=== PATIENT | female | born 1960 | race African-American/Black ===

== ENCOUNTER 2018-01-04 09:58 | Emergency (ER) | payer MEDICARE, MEDICAID ==
[~2018-01-04] VITALS: Ht 162.6 cm; Wt 61.2 kg
[2018-01-04 10:43] LABS: Basophils # (auto) 0 uL; Basophils % (auto) 0.8 % (0.0-2.0); Eosinophils # (auto) 0.2 uL; Hemoglobin 13.3 g/dL (12.2-16.2); Lymphocytes # (auto) 1.9 uL; Mean Corpuscular Hemoglobin 30.2 pg (28.0-32.0); Mean Corpuscular Hgb Conc. 31.7 g/dL (32.0-36.0); Mean Corpuscular Volume 95.4 fL (80.0-100.0); Monocytes # (auto) 0.4 uL; Neutrophils # (auto) 1.7 uL; Neutrophils % (auto) 40.2 % (37.0-80.0); Nucleated Red Blood Cells % 0.2 %; Platelet Count (auto) 383 10^3/uL (140-450); Red Blood Cells 4.41 10^6/uL (4.0-5.20); Red Cell Distribution Width 15.6 % (11.8-14.3); White Blood Cell 4.2 10^3/uL (4.4-10.8)
[2018-01-04 10:54] LABS: Urine Bacteria FEW /hpf (None Seen); Urine Blood Negative /uL (Negative); Urine Specific Gravity 1.012 (1.001-1.035); Urine WBC 2 /hpf (0 - 5)
[2018-01-04 11:04] LABS: Alanine Aminotransferase 17 U/L (13-56); Albumin 3.7 g/dL (3.4-5.0); Alkaline Phosphatase 64 U/L (45-117); Anion Gap 7 (5-15); Aspartate Aminotransferase 17 U/L (15-37); BUN/Creatinine Ratio 9.3; Bilirubin, Total 0.4 mg/dL (0.2-1.0); Blood Urea Nitrogen 10 mg/dL (7-18); Calcium 9.2 mg/dL (8.5-10.1); Carbon Dioxide 24 mmol/L (21-32); Chloride 106 mmol/L (98-107); GFR African American 67 mL/min; GFR Non-African American 56 mL/min; Glucose 96 mg/dL (74-106); Magnesium 2.5 mg/dL (1.6-2.6); Potassium 3.9 mmol/L (3.5-5.1); Sodium 137 mmol/L (136-145); Total Protein 9.1 g/dL (6.4-8.2)
[2018-01-04 11:12] LABS: Alcohol, Urine < 3.0 mg/dL (0-5); Amphetamine Screen, Urine NEGATIVE (NEGATIVE); Barbiturate Scree,Urine NEGATIVE (NEGATIVE); Benzodiazephine Screen, Urine NEGATIVE (NEGATIVE); Cannabinoid Screen, Urine POSITIVE (NEGATIVE); Cocaine Screen, Urine NEGATIVE (NEGATIVE); Opiate Scree,Urine NEGATIVE (NEGATIVE); Phencyclidine Screen, Urine NEGATIVE (NEGATIVE)
[2018-01-04] MEDS ORDERED: HYDROcodone-ACET 10/325MG TAB PO ONE ×2 (11:30)
[2018-01-04 13:20] VITALS: BP 136/86
== END 2018-01-04 13:46 | disposition home or self-care (01) ==
LOC: ER 09:58
DX: R07.89 Other chest pain (principal); N39.0 Urinary tract infection, site not specified; R04.0 Epistaxis; E78.5 Hyperlipidemia, unspecified
CPT/HCPCS: 36415; 80053; 80307; 81001; 83735; 84484; 85025; 93005

== ENCOUNTER 2024-06-24 18:51 | Emergency (ER) | payer MEDICAID, MEDICARE ==
[~2024-06-24] VITALS: Ht 165.1 cm; Wt 53.6 kg
[2024-06-24 22:31] VITALS: BP 107/55; PULSE 71; RESP 18; O2SAT 98
[2024-06-24] MEDS ORDERED: IBUP1TAB4 PO (22:42)
[2024-06-24] MEDS ORDERED: DICL1GEL59 EX (22:42)
[2024-06-24 22:55] VITALS: TEMP 98
[2024-06-24] MEDS: IBUPROFEN 400 MG TAB PO ONE (22:55)
== END 2024-06-24 23:16 | disposition home or self-care (01) ==
LOC: ER 18:51
DX: S63.691A Other sprain of left index finger, initial encounter (principal); S63.693A Other sprain of left middle finger, initial encounter; E78.5 Hyperlipidemia, unspecified; Z98.890 Other specified postprocedural states; X58.XXXA Exposure to other specified factors, initial encounter; Y93.89 Activity, other specified; Y92.89 Other specified places as the place of occurrence of the external cause; Y99.8 Other external cause status
CPT/HCPCS: 73130

== ENCOUNTER 2024-08-03 09:11 | Emergency (ER) | payer MEDICARE, MEDICAID ==
[~2024-08-03] VITALS: Ht 165.1 cm; Wt 50.4 kg
[~2024-08-03 09:11] MED LIST: DICL1GEL59 EX; IBUP1TAB4 PO
--- NOTE | 2024-08-03 10:29 | ED.PDOC ---
Musculoskeletal HPI Comments 64F presents to the ER w/ no prior Hx associated to the c/c of a wound check. Pt reports that she had trauma on her left 3rd and 4th digit tips after accidentally slamming a door on them 2 weeks ago. Pt states that she has discoloration and swelling of the 3rd digit and swelling on the 4th digit after the trauma. Per pt, the 3rd digit has worsened through time and started to make the pt have on and off mild hand pain. Pt notes that she did go to before heading to the ER. PMHx of high lipids. SHx of and tonsillectomy. Denies chills, fever, N/V/D, SOB, CP or other associated symptom's, modifiers, or recent injuries or sick contact at this time. Chief Complaint: Wound Check Time Seen by MD: 10:20 Primary Care Provider: ARNALDO Blue Notes: Nurses Notes, Medications, Allergies Allergies: Coded Allergies: NO KNOWN ALLERGIES (Unverified , 01/23/16) Home Meds Active Scripts Diclofenac Sodium (Topical) (Voltaren Arthritis Pain) 1 % Gel, 1 % EX QID, #1 GEL Prov:GARY JOSEPH [facility] 06/24/24 Ibuprofen Micronized (Ibuprofen) 400 Mg Tab, 400 MG PO Q4HPRN PRN, #20 TAB Prov:GARY JOSEPH 06/24/24 Information Source: Patient Mode of Arrival: Ambulatory Location: Left Extremity Location: Finger 3, Finger 4 Timing: Weeks Prehospital treatment: None Severity: Moderate Able to Move Extremity: Yes Bear Weight: Limited Pain: Moderate Hand Dominance: Right Mechanism: Blunt Trauma, Spontaneous Circumstances: Door Closure Onset of Symptoms: After Trauma Symptoms: Swelling, Pain DVT Risk Factors: NONE Last Tetanus: Unknown Associated signs and symptoms: Swelling, Hand pain Past Medical History PAST MEDICAL HISTORY: High Lipids Surgical History: , Tonsillectomy [employer] CHAIR History: No Pertinent [employer] CHAIR History Family History Family History: Reviewed,noncontributory to illness, Unknown Social History Smoker: Non-Smoker Alcohol: Denies ETOH Use Drugs: Denies Drug Use Lives In: Home Constitutional: denies: chills, diaphoresis, fatigue, fever, malaise, sweats, weakness, others EENTM: denies: blurred vision, double vision, ear bleeding, ear discharge, ear drainage, ear pain, ear ringing, eye pain, eye redness, hearing loss, mouth pain, mouth swelling, nasal discharge, nose bleeding, nose congestion, nose pain, photophobia, tearing, throat pain, throat swelling, voice changes, others Respiratory: denies: cough, hemoptysis, orthopnea, SOB at rest, shortness of breath, SOB with excertion, stridor, wheezing, others Cardiovascular: denies: chest pain, dizzy spells, diaphoresis, Dyspnea on exertion, edema, irregular heart beat, left arm pain, lightheadedness, palpitations, PND, syncope, others Gastrointestinal: denies: abdomen distended, abdominal pain, blood streaked bowels, constipated, diarrhea, dysphagia, difficulty swallowing, hematemesis, melena, nausea, poor appetite, poor fluid intake, rectal bleeding, rectal pain, vomiting, others Genitourinary: denies: abnormal vagina bleeding, burning, dyspareunia, dysuria, flank pain, frequency, hematuria, incontinence, pain, , vagina discharge, urgency, others Neurological: denies: dizziness, fainting, headache, left sided numbness, left sided weakness, numbness, paresthesia, pre-existing deficit, right sided numbness, right sided weakness, seizure, speech problems, tingling, tremors, weakness, others Musculoskeletal: denies: back pain, gout, joint pain, joint swelling, muscle pain, muscle stiffness, neck pain, others Integumetry: reports: change in color; denies: bruises, change in hair/nails, dryness, laceration, lesions, lumps, rash, wounds, others Allergic/Immunocompromised: denies: Difficulty Healing, Frequent Infections, Hives, Itching, others Hematologic/Lymphatic: denies: anemia, blood clots, easy bleeding, easy bruising, swollen glands, others Endocrine: denies: excessive hunger, excessive sweating, excessive thirst, excessive urination, flushing, intolerance to cold, intolerance to heat, unexplained weight gain, unexplained weight loss, others Psychiatric: denies: anxiety, bipolar disorder, depression, hopeless, panic disorder, schizophrenia, sleepless, suicidal, others All Other Systems: Reviewed and Negative Physical Exam General Appearance: Mild Distress, Normal HEENT: Normal ENT Inspection, PERRL/EOMI, Pharynx Normal, TMs Normal Neck: Full Range of Motion, Non-Tender, Normal, Normal Inspection Respiratory: Chest Non-Tender, Lungs Clear, No Accessory Muscle Use, No Respiratory Distress, Normal Breath Sounds Cardiovascular: No Edema, No JVD, No Murmur, No Gallop, Normal Peripheral Pulses, Regular Rate/Rhythm Breast Exam: Deferred Gastrointestinal: No Organomegaly, Non Tender, No Pulsatile Mass, Normal Bowel Sounds, Soft Genitalia: Deferred Pelvic: Deferred Rectal: Deferred Extremities: Decreased range of motion, Inflammation, No calf tenderness, Normal capillary refill, Non-tender, No pedal edema, Swelling, Tender, Other (Left hand 3rd and 4th digit mostly the 3rd tip swollen and discolored nail intact pain mostly distal) Musculoskeletal : Location: Left Extremity Location: Finger 3, Finger 4 Apperance: Normal, Swelling, Limited ROM, Tenderness: Moderate, Other (Skin discolored painful no deformity) Neurologic: Alert, care assistant II-XII nml as Tested, No Motor Deficits, Normal Affect, Normal Mood, No Sensory Deficits Cerebellar Function: Normal Reflexes: Normal Skin: Dry, Normal Color, Warm Peripheral Pulses: 1+ carotid (R), 1+ carotid (L) Lymphatic: No Adenopathy Was a procedure done? Was a procedure done?: No Differential Diagnosis EXT Differential Diagnosis: Cellulitis, Fracture, Laceration, Contusion, Septic, Other (Skin disruption distal phalanx with possible secondary infection) X-Ray, Labs, Meds, VS Vital Signs Date Time Temp Pulse Resp B/P (MAP) Pulse Ox O2 Delivery O2 Flow Rate FiO2 08/03/24 10:25 79 16 96 Room Air 08/03/24 10:25 98.7 79 17 100/66 (77) 96 98.7 08/03/24 09:31 98.1 84 16 135/66 (89) 92 Current Medications Medications (Trade) Dose Ordered Sig/Jaspreet Route Start Time Stop Time Status Last Admin Acetaminophen/ Hydrocodone Bitart ([place] 5/325MG Tab) 1 tab ONCE ONCE PO 08/03/24 10:30 08/03/24 10:31 DC 08/03/24 10:32 Diphtheria/ Tetanus/Acell Pertussis (Boostrix T-Dap) 0.5 ml ONCE ONCE IM 08/03/24 10:30 08/03/24 10:31 DC 08/03/24 10:38 X-Ray, Labs, Meds, VS Comment Course in the emergency department patient presented for follow up injury she has near left hand on 06/24/2024 at the urgent care x-ray was taken it was found to be normal Today distal phalanx 2nd 3rd and four hot swollen tender in the 3rd finger is also infected with discoloration of the tip of the finger X-ray today shows a fracture of the tuft of the 2nd finger distal phalanx and on evaluation the previous x-ray there is actually no change between the two of them Patient will have the hand splint involving the three distal fingers She will be discharged with pain medication antibiotics Time of 1ST Reevaluation: 10:50 Reevaluation 1ST: Unchanged Time of 2ND Reevaluation: 12:05 Reevaluation 2ND: Unchanged Consultation: PCP Patient Education/Counseling: Diagnosis, Treatment, Prognosis, Need For Follow Up Family Education/Counseling: Diagnosis, Treatment, Prognosis, Need For Follow Up, No Family Present Departure 1 Departure Time of Disposition: 12:09 Impression: Primary Impression: Crushing injury of left hand and finger Additional Impressions: Fracture of distal phalanx of finger of left hand Cellulitis of finger of right hand Disposition: 01 HOME / SELF CARE / HOMELESS Condition: Fair Additional Instructions: Keep hand elevated and follow up with your PCP e-Prescriptions Naproxen (NAPROSYN TABLET) 500 Mg Tb 1 TAB PO BID for 5 Days, #10 TAB 1 Refill Prov: SALO MCCALLUM MD 08/03/24 Cefdinir (Cefdinir) 300 Mg Cap 2 CAP PO DAILY for 10 Days, #20 CAP Prov: SALO MCCALLUM MD 08/03/24 Hydrocodone-Acetaminophen (Hydrocodone Bitartrate/AC 5-325 mg) 1 Tab Tab 1 TAB PO BID for 5 Days, #10 TAB Prov: SALO MCCALLUM MD 08/03/24 Discharged With: Self Critical Care Note Critical Care Time?: No Stability Stability form required: No Heart Score Heart Score: Heart Score Response (Comments) Value History N/A 0 EKG N/A 0 Age 45-64 1 Risk Factors No known risk factors 0 Troponin N/A 0 Total 1 I personally scribed for SALO MCCALLUM MD ([email or web address]) on 08/03/24 at 10:29. Electronically submitted by Julio Naylor ([email or web address]). SALO MCCALLUM MD Aug 03, 2024 10:29
[2024-08-03] MEDS: HYDROcodone-ACET 5/325MG TAB PO ONE (10:32)
[2024-08-03] MEDS: TETANUS-DIPTH-ACEL PERTUSSIS 0.5ML SYR Tdap IM ONE (10:38)
--- NOTE | 2024-08-03 11:48 | DVH ---
XY L HAND 3V XRAY, INDICATION: 64 old Female CRUSH INJURY 3AND 4 FINGERS TECHNICAL DATA: Frontal, oblique and lateral views were obtained of the left hand. COMPARISON: XY L HAND 3V XRAY on DOS: 06/24/24 FINDINGS: Small fracture at the tuft of the 2nd distal phalanx. Joint spaces are maintained. Alignment is anato anushka. Soft tissues are within normal limits. IMPRESSION: Small fracture at the tuft of the 2nd distal phalanx.
[2024-08-03] MEDS ORDERED: NAP500T PO (12:13)
[2024-08-03] MEDS ORDERED: HYDR-4902 PO (12:13)
[2024-08-03] MEDS ORDERED: CEFD300C2 PO (12:13)
[2024-08-03 12:17] VITALS: BP 127/78; PULSE 78; RESP 17; TEMP 98.3; O2SAT 96
== END 2024-08-03 12:38 | disposition home or self-care (01) ==
LOC: ER 09:11
DX: S62.631A Displaced fracture of distal phalanx of left index finger, initial encounter for closed fracture (principal); L03.011 Cellulitis of right finger; E78.5 Hyperlipidemia, unspecified; Z90.89 Acquired absence of other organs; Z79.899 Other long term (current) drug therapy; Z98.890 Other specified postprocedural states; W23.0XXA Caught, crushed, jammed, or pinched between moving objects, initial encounter; Y93.89 Activity, other specified; Y92.89 Other specified places as the place of occurrence of the external cause; Y99.8 Other external cause status
CPT/HCPCS: 29130; 73130; 90715; 96372

== ENCOUNTER 2024-08-11 08:16 | Inpatient (IN) | payer MEDICARE, MEDICAID ==
[~2024-08-11] VITALS: Ht 162.6 cm; Wt 55.4 kg
[~2024-08-11 08:16] MED LIST changes: +CEFD300C2 PO; +HYDR-4902 PO; +NAP500T PO
--- NOTE | 2024-08-11 08:43 | ED.PDOC ---
Musculoskeletal HPI Comments 64Y F with PMHx HLD, , and tonsillectomy presents to ED for chief complaint wound check. Pt states she crushed her fingers on door in mid June 2024. Pt presents to ED with lt middle finger containing dry, black gangrene on distal end. Pt was seen at [facility] ER on 06/24/2024 and 08/03/2024, notes reviewed. Pt denies any h/o diabetes. Pt denies pain. Chief Complaint: Wound Check Time Seen by MD: 08:22 Primary Care Provider: ARNALDO Blue Notes: Medications, Allergies Allergies: Coded Allergies: NO KNOWN ALLERGIES (Unverified , 01/23/16) Home Meds Active Scripts Naproxen (NAPROSYN TABLET) 500 Mg Tb, 1 TAB PO BID for 5 Days, #10 TAB 1 Refill Prov:SALO MCCALLUM MD 08/03/24 Cefdinir (Cefdinir) 300 Mg Cap, 2 CAP PO DAILY for 10 Days, #20 CAP Prov:SAOL MCCALLUM MD 08/03/24 Hydrocodone-Acetaminophen (Hydrocodone Bitartrate/AC 5-325 mg) 1 Tab Tab, 1 TAB PO BID for 5 Days, #10 TAB Prov:SALO MCCALLUM MD 08/03/24 Diclofenac Sodium (Topical) (Voltaren Arthritis Pain) 1 % Gel, 1 % EX QID, #1 GEL Prov:GARY JOSEPH 06/24/24 Ibuprofen Micronized (Ibuprofen) 400 Mg Tab, 400 MG PO Q4HPRN PRN, #20 TAB Prov:GARY JOSEPH 06/24/24 Information Source: Patient Mode of Arrival: Ambulatory Location: Left Extremity Location: Finger 3 Timing: Months Severity: Severe Able to Move Extremity: No Bear Weight: No Pain: None Mechanism: Crush Circumstances: Accident Onset of Symptoms: After Trauma DVT Risk Factors: NONE Last Tetanus: Unknown Associated signs and symptoms: None Past Medical History PAST MEDICAL HISTORY: High Lipids Surgical History: , Tonsillectomy PUBLIC HEALTH POLICY ANALYST History: No Pertinent PUBLIC HEALTH POLICY ANALYST History Family History Family History: Reviewed,noncontributory to illness, Unknown Social History Smoker: Non-Smoker Alcohol: Denies ETOH Use Drugs: Denies Drug Use Lives In: Home Constitutional: denies: chills, diaphoresis, fatigue, fever, malaise, sweats, weakness, others EENTM: denies: blurred vision, double vision, ear bleeding, ear discharge, ear drainage, ear pain, ear ringing, eye pain, eye redness, hearing loss, mouth pain, mouth swelling, nasal discharge, nose bleeding, nose congestion, nose pain, photophobia, tearing, throat pain, throat swelling, voice changes, others Respiratory: denies: cough, hemoptysis, orthopnea, SOB at rest, shortness of breath, SOB with excertion, stridor, wheezing, others Cardiovascular: denies: chest pain, dizzy spells, diaphoresis, Dyspnea on exertion, edema, irregular heart beat, left arm pain, lightheadedness, palpitations, PND, syncope, others Gastrointestinal: denies: abdomen distended, abdominal pain, blood streaked bowels, constipated, diarrhea, dysphagia, difficulty swallowing, hematemesis, melena, nausea, poor appetite, poor fluid intake, rectal bleeding, rectal pain, vomiting, others Genitourinary: denies: abnormal vagina bleeding, burning, dyspareunia, dysuria, flank pain, frequency, hematuria, incontinence, pain, , vagina discharge, urgency, others Neurological: denies: dizziness, fainting, headache, left sided numbness, left sided weakness, numbness, paresthesia, pre-existing deficit, right sided numbness, right sided weakness, seizure, speech problems, tingling, tremors, weakness, others Musculoskeletal: denies: back pain, gout, joint pain, joint swelling, muscle pain, muscle stiffness, neck pain, others Integumetry: reports: wounds (lt middle finger); denies: bruises, change in color, change in hair/nails, dryness, laceration, lesions, lumps, rash, others Allergic/Immunocompromised: denies: Difficulty Healing, Frequent Infections, Hives, Itching, others Hematologic/Lymphatic: denies: anemia, blood clots, easy bleeding, easy bruising, swollen glands, others Endocrine: denies: excessive hunger, excessive sweating, excessive thirst, excessive urination, flushing, intolerance to cold, intolerance to heat, unexplained weight gain, unexplained weight loss, others Psychiatric: denies: anxiety, bipolar disorder, depression, hopeless, panic disorder, schizophrenia, sleepless, suicidal, others All Other Systems: Reviewed and Negative Physical Exam General Appearance: No Apparent Distress, Normal HEENT: Normal ENT Inspection, Pharynx Normal, TMs Normal Neck: Full Range of Motion, Non-Tender, Normal, Normal Inspection Respiratory: Chest Non-Tender, Lungs Clear, No Accessory Muscle Use, No Respiratory Distress, Normal Breath Sounds Cardiovascular: No Edema, No JVD, No Murmur, No Gallop, Normal Peripheral Pulses, Regular Rate/Rhythm Breast Exam: Deferred Gastrointestinal: No Organomegaly, Non Tender, No Pulsatile Mass, Normal Bowel Sounds, Soft Genitalia: Deferred Pelvic: Deferred Rectal: Deferred Extremities: No calf tenderness, Normal range of motion, Non-tender, No pedal edema Musculoskeletal : Location: Left Extremity Location: Finger 3 Apperance: Other (distal dry gangrene) Neurologic: Alert, 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 Was a procedure done?: Yes Sedation Sedation?: No Other Procedure Procedure finger splint. place properly, good neurovascular function EKG EKG : Pulse Rate (adult): 59 Cardiac Rhythm: SB ST: Nonsp Differential Diagnosis EXT Differential Diagnosis: Cellulitis, Deep Vein Thrombosis, Fracture, Sprain, Dislocation, DJD, Contusion, Strain, Neurovascular injury, Arthritis, Bursitis, Other (gangrene. vascular disorders, raynauds disease, thromboembolic disorders) X-Ray, Labs, Meds, VS Vital Signs Date Time Temp Pulse Resp B/P (MAP) Pulse Ox O2 Delivery O2 Flow Rate FiO2 08/11/24 10:23 59 08/11/24 10:18 59 08/11/24 08:49 99.0 100 16 126/74 (91) 96 99.0 08/11/24 08:49 72 16 96 Room Air* 0 21 08/11/24 08:23 99.0 100 16 126/74 (91) 96 Lab Test 08/11/24 08:44 Range/Units White Blood Count 6.1 4.4-10.8 10^3/uL Red Blood Count 4.47 4.0-5.20 10^6/uL Hemoglobin 14.4 12.2-16.2 g/dL Hematocrit 43.9 36.0-46.0 % Mean Corpuscular Volume 98.1 80.0-100.0 fL Mean Corpuscular Hemoglobin 32.2 H 28.0-32.0 pg Mean Corpuscular Hemoglobin Concent 32.8 32.0-36.0 g/dL Red Cell Distribution Width 14.9 H 11.8-14.3 % Platelet Count 426 140-450 10^3/uL Mean Platelet Volume 7.3 6.9-10.8 fL Neutrophils (%) (Auto) 42.4 37.0-80.0 % Lymphocytes (%) (Auto) 43.2 10.0-50.0 % Monocytes (%) (Auto) 9.2 0.0-12.0 % Eosinophils (%) (Auto) 3.9 0.0-7.0 % Basophils (%) (Auto) 1.3 0.0-2.0 % Neutrophils # (Auto) 2.6 1.6-8.6 10 ^3/uL Lymphocytes # (Auto) 2.7 0.4-5.4 10 ^3/uL Monocytes # (Auto) 0.6 0-1.3 10 ^3/uL Eosinophils # (Auto) 0.2 0-0.8 10 ^3/uL Basophils # (Auto) 0.1 0-0.2 10 ^3/uL Nucleated Red Blood Cells 0.2 % Sodium Level 140 136-145 mmol/L Potassium Level 4.1 3.5-5.1 mmol/L Chloride Level 110 H 98-107 mmol/L Carbon Dioxide Level 25 20-31 mmol/L Anion Gap 5 5-15 Blood Urea Nitrogen 6 L 9-23 mg/dL Creatinine 0.97 0.550-1.02 mg/dL Glomerular Filtration Rate Calc 66 >90 mL/min BUN/Creatinine Ratio 6.2 L 10.0-20.0 Serum Glucose 100 74-106 mg/dL Calcium Level 9.9 8.7-10.4 mg/dL Current Medications Medications (Trade) Dose Ordered Sig/Jaspreet Route Start Time Stop Time Status Last Admin Acetaminophen/ Hydrocodone Bitart ([place] 5/325MG Tab) 1 tab ONCE ONCE PO 08/11/24 09:00 08/11/24 09:01 DC 08/11/24 09:00 [facility] [id number] [place] [id number] Ph: [phone] DIAGNOSTIC IMAGING Diagnostic Imaging Report : [id number] Signed PATIENT: GERRY GALLARDO ANNACCT: [id number] UNIT: [id number] : 1960 LOC: ER ROOM / BED: / AGE / SEX: 64 / F ADM STATUS: REG ER SERVICE 8 ORDERING PHYSICIAN: MCKENZIE CONRAD MD PROCEDURE(s): LFIN3 - L 3RD FINGER XRAY REASON: injury ORDER NUMBER(s): [id number], ACCESSION NUMBER(s): [id number] INDICATION: 64 old Female CRUSH INJURY 3AND 4 FINGERS TECHNICAL DATA: Frontal, oblique and lateral views were obtained of the left hand. COMPARISON: 08/03/24 FINDINGS: Fracture at the tuft of the 2nd distal phalanx, stable. Joint spaces are maintained. Alignment is anatomic. Soft tissues are within normal limits. IMPRESSION: Stable small fracture at the tuft of the 2nd distal phalanx. ATED BY: SHAVONNE CANO MD DICTATED DATE/TIME: 08/11/24930 SIGNED BY: SHAVONNE CANO MD SIGNED DATE/TIME: 08/11/24930 CC: Time of 1ST Reevaluation: 08:52 Reevaluation 1ST: Unchanged Time of 2ND Reevaluation: 10:54 Reevaluation 2ND: Unchanged Patient Education/Counseling: Diagnosis, Treatment, Prognosis, Need For Follow Up Family Education/Counseling: No Family Present Additional Information pt smashed her left middle finger and now has a dried gangrenous distal phalanx. she also fractured the left 2nd tuft. however, this suggests she also has vascular disorder. for the finger, she will eventually need it amputated, but she will need to be worked up for arterial insufficiency. i will have her admitted Departure 1 Departure Time of Disposition: 10:58 Impression: Primary Impression: Dry gangrene Additional Impressions: Vascular abnormality Closed fracture of tuft of distal phalanx of finger Disposition: ADMITTED INPATIENT Admit to: Med Surg Condition: Stable Discharged With: Self Critical Care Note Critical Care Time?: No Critical care comment: due to real concerns for pt's condition deteriorating, the patient's care required my highest level of attention and prepareness to intervene. i assessed this patient, formulated a plan of care, communicated with medical personnel,reveiwed data and results,andconversed with child welfare consultant, reassessed the patient's condition and response to treatments. total time includde at [facility] 50% face-face interactions and does not include any procedures Stability Stability form required: No I personally scribed for MCKENZIE CONRAD MD ([email or web address]) on 08/11/24 at 08:43. Electronically submitted by Penny Woods ([employer]). I personally scribed for MCKENZIE CONRAD MD ([email or web address]) on 08/11/24 at 09:35. Electronically submitted by Penny Woods ([employer]). I personally scribed for MCKENZIE CONRAD MD ([facility] on 08/11/24 at 10:23. Electronically submitted by Penny Woods ([employer]). MCKENZIE CONRAD MD Aug 11, 2024 08:43
[2024-08-11 08:49] VITALS: PULSE 72; RESP 16; O2SAT 96
[2024-08-11] MEDS: HYDROcodone-ACET 5/325MG TAB PO ONE (09:00)
[2024-08-11 09:04] LABS: Basophils # (auto) 0.1 10 ^3/uL (0-0.2); Basophils % (auto) 1.3 % (0.0-2.0); Eosinophils # (auto) 0.2 10 ^3/uL (0-0.8); Eosinophils % (auto) 3.9 % (0.0-7.0); Hematocrit 43.9 % (36.0-46.0); Hemoglobin 14.4 g/dL (12.2-16.2); Lymphocytes # (auto) 2.7 10 ^3/uL (0.4-5.4); Lymphocytes % (auto) 43.2 % (10.0-50.0); Mean Corpuscular Hemoglobin 32.2 pg (28.0-32.0); Mean Corpuscular Hgb Conc. 32.8 g/dL (32.0-36.0); Mean Corpuscular Volume 98.1 fL (80.0-100.0); Monocytes # (auto) 0.6 10 ^3/uL (0-1.3); Monocytes % (auto) 9.2 % (0.0-12.0); Neutrophils # (auto) 2.6 10 ^3/uL (1.6-8.6); Neutrophils % (auto) 42.4 % (37.0-80.0); Nucleated Red Blood Cells % 0.2 %; Platelet Count (auto) 426 10^3/uL (140-450); Red Blood Cells 4.47 10^6/uL (4.0-5.20); Red Cell Distribution Width 14.9 % (11.8-14.3); White Blood Cell 6.1 10^3/uL (4.4-10.8)
--- NOTE | 2024-08-11 09:34 | DVH ---
INDICATION: 64 old Female CRUSH INJURY 3AND 4 FINGERS TECHNICAL DATA: Frontal, oblique and lateral views were obtained of the left hand. COMPARISON: 08/03/24 FINDINGS: Fracture at the tuft of the 2nd distal phalanx, stable. Joint spaces are maintained. Alignment is jeanette tomic. Soft tissues are within normal limits. IMPRESSION: Stable small fracture at the tuft of the 2nd distal phalanx.
[2024-08-11 09:39] LABS: Chloride 110 mmol/L (98-107); Potassium 4.1 mmol/L (3.5-5.1); Sodium 140 mmol/L (136-145)
[2024-08-11 09:40] LABS: Anion Gap 5 (5-15); Carbon Dioxide 25 mmol/L (20-31)
[2024-08-11 09:41] LABS: Calcium 9.9 mg/dL (8.7-10.4)
[2024-08-11 09:45] LABS: BUN/Creatinine Ratio 6.2 (10.0-20.0); Blood Urea Nitrogen 6 mg/dL (9-23); Glucose 100 mg/dL (74-106)
[2024-08-11] MEDS ORDERED: ACETAMINOPHEN 325 MG TAB PO PRN (13:45)
--- NOTE | 2024-08-11 13:53 | DVHHP2 ---
History of Present Illness Reason for Visit: Wound check History of Present Illness This 64-year-old female presents in the ED with a chief complaint of wound check. The patient reports that she was advised by her PCP to go back to the ER due to left middle finger gangrene. The patient states she crushed her fingers on door in mid June, went to the ER 2 times and was sent home to follow-up with PCP. The patient denies fever, chills, pain, or other acute symptoms. Past Medical History Hyperlipidemia Past Surgical History Denies Family History Reviewed, non-contributory to the management of this case. Past Social History Tobacco and marijuana use Denies EtOH abuse Review of Systems Constitutional: No: Fever, Chills, Sweats, Weakness, Malaise, Other Eyes: No: Pain, Vision change, Conjunctivae inflammation, Eyelid inflammation, Other, Redness ENT: No: Ear pain, Ear discharge, Nose pain, Nose discharge, Nose congestion, Mouth pain, Mouth swelling, Throat pain, Throat swelling, Other Respiratory: No: Cough, Dry, Shortness of breath, SOB with excertion, Wheezing, Hemoptysis, Pleuritic Pain, Sputum, Wheezing, Other Cardiovascular: No: Chest Pain, Palpitations, Orthopnea, Paroxysmal Noc. Dyspnea, Edema, Lt Headedness, Other Gastrointestinal: No: Nausea, Vomiting, Abdominal Pain, Diarrhea, Constipation, Melena, Hematochezia, Other Genitourinary: No Dysuria, No Frequency, No Incontinence, No Hematuria, No Retention, No Other Musculoskeletal: other (Wound mid finger, gangrene); No: neck pain, shoulder pain, arm pain, back pain, hand pain, leg pain, foot pain Skin: No: Rash, Lesions, Jaundice, Bruising, Other Neurological: No: Weakness, Numbness, Incoordination, Change in speech, Confusion, Seizures, Other Allergies: Coded Allergies: NO KNOWN ALLERGIES (Unverified , 01/23/16) Exam Vital Signs Vital Signs Date Time Temp Pulse Resp B/P (MAP) Pulse Ox O2 Delivery O2 Flow Rate FiO2 08/11/24 12:00 58 08/11/24 10:41 11 94/30 (51) 97 08/11/24 08:49 99.0 99.0 08/11/24 08:49 Room Air* 0 21 General Appearance: Alert, Oriented X3, Cooperative, No acute distress HEENT: Atraumatic, PERRLA, EOMI, Mucous membr. moist/pink Respiratory: Clear to auscultation, Normal air movement Cardiovascular: Regular rate, Normal S1, Normal S2 Abdominal: Normal bowel sounds, Soft, No tenderness, No hepatospenomegaly Extremities: Other (Left middle finger gangrene, 2nd distal phalanx fracture) Neuro: Normal gait, Normal speech, Strength at 5/5 X4 ext, Normal tone Psych/Mental Status: Mental status NL Labs/Xrays Labs Test 08/11/24 08:44 Range/Units White Blood Count 6.1 4.4-10.8 10^3/uL Red Blood Count 4.47 4.0-5.20 10^6/uL Hemoglobin 14.4 12.2-16.2 g/dL Hematocrit 43.9 36.0-46.0 % Mean Corpuscular Volume 98.1 80.0-100.0 fL Mean Corpuscular Hemoglobin 32.2 H 28.0-32.0 pg Mean Corpuscular Hemoglobin Concent 32.8 32.0-36.0 g/dL Red Cell Distribution Width 14.9 H 11.8-14.3 % Platelet Count 426 140-450 10^3/uL Mean Platelet Volume 7.3 6.9-10.8 fL Neutrophils (%) (Auto) 42.4 37.0-80.0 % Lymphocytes (%) (Auto) 43.2 10.0-50.0 % Monocytes (%) (Auto) 9.2 0.0-12.0 % Eosinophils (%) (Auto) 3.9 0.0-7.0 % Basophils (%) (Auto) 1.3 0.0-2.0 % Neutrophils # (Auto) 2.6 1.6-8.6 10 ^3/uL Lymphocytes # (Auto) 2.7 0.4-5.4 10 ^3/uL Monocytes # (Auto) 0.6 0-1.3 10 ^3/uL Eosinophils # (Auto) 0.2 0-0.8 10 ^3/uL Basophils # (Auto) 0.1 0-0.2 10 ^3/uL Nucleated Red Blood Cells 0.2 % Sodium Level 140 136-145 mmol/L Potassium Level 4.1 3.5-5.1 mmol/L Chloride Level 110 H 98-107 mmol/L Carbon Dioxide Level 25 20-31 mmol/L Anion Gap 5 5-15 Blood Urea Nitrogen 6 L 9-23 mg/dL Creatinine 0.97 0.550-1.02 mg/dL Glomerular Filtration Rate Calc 66 >90 mL/min BUN/Creatinine Ratio 6.2 L 10.0-20.0 Serum Glucose 100 74-106 mg/dL Calcium Level 9.9 8.7-10.4 mg/dL PROCEDURE(s): LFIN3 - L 3RD FINGER XRAY REASON: injury ORDER NUMBER(s): [id number], ACCESSION NUMBER(s): [id number] INDICATION: 64 old Female CRUSH INJURY 3AND 4 FINGERS TECHNICAL DATA: Frontal, oblique and lateral views were obtained of the left hand. COMPARISON: 08/03/24 FINDINGS: Fracture at the tuft of the 2nd distal phalanx, stable. Joint spaces are maintained. Alignment is anatomic. Soft tissues are within normal limits. IMPRESSION: Stable small fracture at the tuft of the 2nd distal phalanx. Assessment/Plan Assessment/Plan # left middle finger necrosis, gangrene # left the 2nd distal phalanx fracture s/p injury # rule out arterial insufficiency, left upper extremity Admit to medical unit Arterial Doppler Pain control Vascular consult # hx hyperlipidemia Check lipid panel # tobacco and marijuana use Counseled on cessation Nicotine patch DVT prophylaxis Medical plan discussed with patient and daughter at the bedside Plan discussed with: Patient, Daughter My Orders Orders - JOSE SHORT LOGISTICS TECH Procedure Category Date Status Time Admit ADMIT 08/11/24 Verified 13:35 Code Status CODE 08/11/24 Verified 13:35 Hydrocodone-Acet PHA 08/11/24 Verified 5/325mg Tab ([place] 13:45 Ondansetron Hcl PHA 08/11/24 Verified (Zofran) 13:45 Complete Blood Count LAB 08/12/24 Verified 04:00 Comprehensive LAB 08/12/24 Verified Metabolic Panel 04:00 Cardiac DIET 08/11/24 Verified Diet-2gna,Lofat,Lochol Dinner Condition: Fair CATHERINE 08/11/24 Verified 13:35 Enoxaparin Sodium PHA 08/12/24 Verified (Lovenox) 10:00 Acetaminophen Tablet PHA 08/11/24 Verified (Tylenol Tablet) 13:45 Morphine Sulfate PHA 08/11/24 Verified Injection 13:45 Consult CONS 08/11/24 Verified Vascular/Endovascular 13:35 Left Upper Ext US 08/11/24 Verified 13:35 Lipid Panel LAB 08/11/24 Verified 13:35 Date of Service: Aug 11, 2024 Billing Provider: JOSE SHORT Common Visit Codes: [id number] INP/OBS CARE (HIGH) JOSE SHORT Aug 11, 2024 13:53
[2024-08-11 14:10] LABS: Triglycerides 99 mg/dL (< 150)
[2024-08-11 14:11] LABS: LDL Cholesterol 169 mg/dL (< 100)
[2024-08-11 14:12] LABS: Cholesterol 236 mg/dL (< 200); HDL Cholesterol 52 mg/dL (40-59)
[2024-08-11] MEDS: ONDANSETRON HCL 4 MG/2 ML VIAL IV ONE (14:16)
[2024-08-11] MEDS: MORPHINE SULFATE INJ 2 MG/ml SYRG IV ONE (14:17)
[2024-08-11] MEDS: NICOTINE 7MG/24HR TOPICAL PATCH TD ONE (15:22)
--- NOTE | 2024-08-11 15:53 | DVH ---
BILATERAL Lower Extremity Arterial Duplex Date: 08/11/2024 02:42 PM Clinical History: NECROTIC FINGER Comparison: None Technique: Duplex Doppler evaluation including color Doppler and spectral/pulsed waveform analysis of the lower extremity arteries was performed. Finding: LEFT UPPER EXTREMITY: Peak systolic velocities are as follows: LEFT SUBCLAVIAN ARTERY: 120 CENTIMETERS/SECOND . MONOPHASIC WAVEFORM Left axillary artery. 91 centimeters/second triphasic waveform Left brachial artery: 143 centimeters/second triphasic waveform Left radial artery: 45 centimeters/second monophasic waveform Left ulnar artery 35.3 centimeters/second monophasic waveform IMPRESSION: 1. There is no evidence arterial occlusion in the left upper extremity. 2. Monophasic waveform in the left radial and ulnar artery.
[2024-08-11] MEDS: ONDANSETRON HCL 4 MG/2 ML VIAL IV PRN (18:43)
[2024-08-11] MEDS: MORPHINE SULFATE INJ 2 MG/ml SYRG IV PRN (18:44)
[2024-08-11 20:32] VITALS: BP 100/30; PULSE 68; RESP 18; TEMP 98.1; O2SAT 97
[2024-08-11] MEDS: HYDROcodone-ACET 5/325MG TAB PO PRN (20:49)
[2024-08-11 21:00] VITALS: BP 100/30; PULSE 68; RESP 18; TEMP 98.1; O2SAT 97
[2024-08-12] VITALS (7 sets, daily range): BP systolic 96–121; BP diastolic 40–58; PULSE 55–81; RESP 16–18; TEMP 98.2–98.4; O2SAT 96–98
[2024-08-12] MEDS: MELATONIN 5 MG TAB PO ONE (01:02)
[2024-08-12 08:25] LABS: Alanine Aminotransferase 11 U/L (7-40); Albumin 3.9 g/dL (3.2-4.8); Alkaline Phosphatase 56 U/L (46-116); Anion Gap 3 (5-15); Aspartate Aminotransferase 15 U/L (13-40); BUN/Creatinine Ratio 5.9 (10.0-20.0); Blood Urea Nitrogen 6 mg/dL (9-23); Calcium 9.4 mg/dL (8.7-10.4); Carbon Dioxide 25 mmol/L (20-31); Chloride 112 mmol/L (98-107); Potassium 4.6 mmol/L (3.5-5.1); Sodium 140 mmol/L (136-145)
[2024-08-12 08:26] LABS: Bilirubin, Total 0.5 mg/dL (0.2-1.0); Total Protein 6.5 g/dL (5.7-8.2)
[2024-08-12] MEDS: ENOXAPARIN SOD 40 MG/0.4 ML SYRINGE SC SCH (08:31)
[2024-08-12] MEDS: NICOTINE 7MG/24HR TOPICAL PATCH TD SCH (08:31)
[2024-08-12 08:33] LABS: Basophils # (auto) 0.1 10 ^3/uL (0-0.2); Basophils % (auto) 1.2 % (0.0-2.0); Eosinophils # (auto) 0.3 10 ^3/uL (0-0.8); Eosinophils % (auto) 4.4 % (0.0-7.0); Glucose 88 mg/dL (74-106); Hematocrit 42.6 % (36.0-46.0); Hemoglobin 13.6 g/dL (12.2-16.2); Lymphocytes # (auto) 3.2 10 ^3/uL (0.4-5.4); Lymphocytes % (auto) 45.4 % (10.0-50.0); Mean Corpuscular Hemoglobin 31.9 pg (28.0-32.0); Mean Corpuscular Volume 99.7 fL (80.0-100.0); Monocytes # (auto) 0.6 10 ^3/uL (0-1.3); Monocytes % (auto) 8.6 % (0.0-12.0); Neutrophils # (auto) 2.8 10 ^3/uL (1.6-8.6); Neutrophils % (auto) 40.4 % (37.0-80.0); Nucleated Red Blood Cells % 0.1 %; Platelet Count (auto) 289 10^3/uL (140-450); Red Blood Cells 4.28 10^6/uL (4.0-5.20); Red Cell Distribution Width 15.6 % (11.8-14.3); White Blood Cell 7.1 10^3/uL (4.4-10.8)
[2024-08-12 11:13] LABS: Hepatitis B Surface Antigen Negative (Negative)
[2024-08-12 11:34] LABS: Hepatitis C Antibody Negative (Negative)
--- NOTE | 2024-08-12 12:23 | DVHPN2 ---
Progress Note Date Seen: Aug 12, 2024 Medical Necessity Reason Pt with a Central, PICC or Fol: No Subjective Patient reports: No new complaints Review of Systems: HEENT:Normal, CVS:Normal, RESPIRATORY:Normal, GI:Normal, :Normal, MSK:Normal, NEURO:Normal Objective vital signs Vital Sign Date Time Temp Pulse Resp B/P (MAP) Pulse Ox O2 Delivery O2 Flow Rate FiO2 08/12/24 09:00 98.2 56 18 104/56 (72) 96 98.2 08/12/24 08:00 Room Air* 0 21 Total Intake and Output 08/11/24 08/11/24 08/12/24 15:00 23:00 07:00 Intake Total 800 ml Balance 800 ml medications Current Medications Medications Dose Ordered Sig/Jaspreet Route Start Time Stop Time Status Last Admin Dose Admin Acetaminophen/ Hydrocodone Bitart 1 tab Q4HP PRN PO 08/11/24 13:45 08/12/24 08:31 1 TAB Ondansetron HCl 4 mg Q4HP PRN IV 08/11/24 13:45 08/11/24 18:43 4 MG Enoxaparin Sodium 40 mg DAILY SC 08/12/24 10:00 Acetaminophen 650 mg Q6HP PRN PO 08/11/24 13:45 Morphine Sulfate 2 mg Q4HPRN PRN IV 08/11/24 13:45 08/11/24 18:44 2 MG Nicotine 1 patch DAILY TD 08/12/24 10:00 Examination: GENERAL:Normal, HEENT:Normal, NECK:Normal, LUNGS:Normal, CVS:Normal, ABDOMEN:Normal, MSK:Normal, MSK:Abnormal (left middle finger necrosis-tip), SKIN:Normal, NEURO:Normal, :Normal laboratory and microbiology Laboratory Tests 08/12/24 07:28 Test 08/12/24 07:28 Range/Units Serum Glucose 88 74-106 mg/dL Problem List/Assessment/Plan Problem List/Assessment/Plan #1 left middle finger tip necrosis: dw dr Jimenes, will see pt, iv ancef #2 tobacco abuse- advised to quit, nicotine patch- time spent 11 mins #3 hyperlipidemia advance care planning- full code- time spent 11 mins Plan discussed with: Patient, Daughter My Orders My Orders Orders - JOSE MANUEL CLARK MD Procedure Category Date Status Time * Orthopedic Consult CONS 08/12/24 Verified 12:19 Nicotine 14mg/24hr PHA 08/13/24 Verified (Nicoderm 14mg/24hr) 10:00 Urinalysis LAB 08/12/24 Uncollected 12:19 Cefazolin Ancef PHA 08/12/24 Verified 14:00 Date of Service: Aug 12, 2024 Billing Provider: JOSE MANUEL CLARK MD Common Visit Codes: [id number] INP/OBS CARE(HIGH) Secondary Visit Codes: [id number] CHNG SMOKING >10MIN, [id number] CARE PLAN 30 MINUTES JOSE MANUEL CALRK MD Aug 12, 2024 12:23
[2024-08-12] MEDS: ceFAZolin 1GM/50ML 50 ML IV SCH (13:30)
[2024-08-12 14:41] LABS: Prothrombin Time 10.6 sec (9.3-11.8)
[2024-08-12 14:53] LABS: Erythrocyte Sedimentation Rate 23 mm/hr (0-20)
--- NOTE | 2024-08-12 15:16 | DVH ---
CLINICAL INFORMATION: 64 years old, Female; left middle finger necrosis. Injury to the distal aspect of the 3rd digit of the left hand, crush injury. TECHNIQUE: Multi sequence multi planar MRI images of the left hand were obtained without IV contrast. COMPARISON: Radiographs dated 08/11/2024, 08/03/2024, and 06/24/2024. FINDINGS: Examination is limited due to suboptimal fat saturation on the fat saturated sequences, par ticularly involving the distal aspects of the 2nd through 4th digits. There is a paucity of soft tiss ue in the distal aspects of the 2nd through 4th digits, to a greater extent involving the 3rd digit, likely correlating with reported history of necrosis, and appears to have progressed when compared to multiple previous radiographs. There is some indistinctness of the distal cortex of the distal phala nx of the 2nd digit, for which mild erosive changes can not be excluded. No fracture or definite eros an changes are seen in the distal phalanges of the 3rd or 4th digits. No definite marrow signal abno rmality visualized given the limitations of the examination. IMPRESSION: 1. Limited examination for the reasons described above. 2. Paucity of soft tissue in the distal aspects of the 2nd through 4th digits, to a greater extent in volving the 3rd digit, may correlate with reported history of soft tissue necrosis. Correlate with c linical findings. 3. Cortical indistinctness in the distal aspect of the 2nd digit, may be due to erosive changes. No c ortical abnormality or marrow signal abnormality identified in the distal phalanges of the 3rd or 4th digits given the limitations of the examination.
--- NOTE | 2024-08-12 15:22 | ECG ---
[facility] Test Date: 2024-08-11 Test Time: 10:18:22 Pat Name: GERRY GALLARDO Department: ER Room: 0293 B Gender: F Ad Clerk: GINI : 1960 Requested By: MCKENZIE CONRAD Order Number: [id number] Reading MD: Carl Mccracken Measurements Intervals Lovely Rate: 59 P: 0 IA: 107 QRS: -35 QRSD: 103 T: -14 QT: 465 QTc: 461 Interpretive Statements Sinus rhythm Short IA interval Left axis deviation Nonspecific T abnormalities, diffuse leads Electronically Signed On 08-15-2024 11:14:07 PST by Carl Mccracken Please click the below link to view image of tracing.
--- NOTE | 2024-08-12 17:02 | DVH ---
EXAM: XR Chest, 1 View CLINICAL INDICATION: htn TECHNIQUE: Frontal view of the chest. COMPARISON: None FINDINGS: LUNGS AND PLEURAL SPACES: Right basilar atelectasis or pneumonia. No pneumothorax. HEART: Unremarkable. No cardiomegaly. MEDIASTINUM: Unremarkable. Normal mediastinal contour. BONES/JOINTS: Unremarkable. No acute fracture. OTHER FINDINGS: . . IMPRESSION: Right basilar atelectasis or pneumonia. HS:Y
[2024-08-12] MEDS: MELATONIN 5 MG TAB PO PRN (22:25)
[2024-08-13] VITALS (8 sets, daily range): BP systolic 101–144; BP diastolic 46–75; PULSE 58–89; RESP 14–18; TEMP 97.8–98.4; O2SAT 96–100
[2024-08-13 06:50] LABS: Partial Thromboplastin Time 30.5 SEC (24.5-34.5); Prothrombin Time 10.6 sec (9.3-11.8)
[2024-08-13 09:29] LABS: Urine Bacteria None Seen /hpf (None Seen); Urine WBC None Seen /hpf (0 - 5)
[2024-08-13] MEDS: NICOTINE 14 MG/24HR TOPICAL PATCH TD SCH (09:37)
[2024-08-13 09:40] LABS: Urine Blood Negative /uL (Negative); Urine Clarity Clear (Clear); Urine Color Light-Yellow (Yellow); Urine Protein, UAD Negative (Negative); Urine Specific Gravity 1.007 (1.001-1.035); Urine Urobilinogen Normal (Negative); Urine pH 6.5 (5.0-9.0)
--- NOTE | 2024-08-13 14:40 | DVHINCON2 ---
Date of service: Aug 12, 2024 Reason for Consultation Left middle finger necrosis History of Present Illness 64 yo F wtih left middle finger injury about 3 weeks ago -- over last few weeks she has been having black eschar develop over finger with pain. Past Medical History Past Medical History Hyperlipidemia Past Surgical History Denies Family History: Hypertension G8 MOTHER G8 FATHER Allergies: Coded Allergies: NO KNOWN ALLERGIES (Unverified , 01/23/16) Home Meds Active Scripts Cefdinir (Cefdinir) 300 Mg Cap, 2 CAP PO DAILY for 10 Days, #20 CAP Prov:SALO MCCALLUM MD 08/03/24 Current Medications Current Medications Medications (Trade) Dose Ordered Sig/Jaspreet Route PRN Reason Start Time Stop Time Status Last Admin Nicotine (Nicoderm 14MG/ 24HR) 1 patch DAILY TD 08/13/24 10:00 08/13/24 09:37 Melatonin (Melatonin) 5 mg HSPRN PO 08/13/24 22:00 08/12/24 22:16 DC Melatonin (Melatonin) 5 mg HSPRN PRN PO FOR INSOMNIA 08/12/24 22:30 08/12/24 22:25 Review of Systems 10 point ROS as per HPI Vital Signs Vital Signs Date Time Temp Pulse Resp B/P (MAP) Pulse Ox O2 Delivery O2 Flow Rate FiO2 08/13/24 13:00 97.8 89 16 144/75 (98) 100 97.8 08/13/24 08:00 Room Air* 0 21 Physical Exam NAD LUE: +finger necrosis at middle finger at distal and middle aspect of mid phalanx Labs/Diagnostic Data Labs Test 08/13/24 06:08 08/13/24 05:50 08/12/24 13:30 08/12/24 07:28 Range/Units Prothrombin Time 10.6 9.3-11.8 sec Prothrombin Time INR 1.00 0.9-1.15 Activated Partial Thromboplast Time 30.5 24.5-34.5 SEC Urine Color Light-yellow Yellow Urine Clarity Clear Clear Urine pH 6.5 5.0-9.0 Urine Specific [place] 1.007 1.001-1.035 Urine Protein Negative Negative Urine Ketones Negative Negative Urine Blood Negative Negative /uL Urine Nitrite Negative Negative Urine Bilirubin Negative Negative Urine Urobilinogen Normal Negative mg/dL Urine Leukocyte Esterase Negative Negative /uL Urine RBC None seen 0 - 4 /hpf Urine WBC None seen 0 - 5 /hpf Urine Squamous Epithelial Cells None seen <5 /hpf Urine Bacteria None seen None Seen /hpf Urine Glucose Normal Normal mg/dL Erythrocyte Sedimentation Rate 23 H 0-20 mm/hr White Blood Count 7.1 4.4-10.8 10^3/uL Red Blood Count 4.28 4.0-5.20 10^6/uL Hemoglobin 13.6 12.2-16.2 g/dL Hematocrit 42.6 36.0-46.0 % Mean Corpuscular Volume 99.7 80.0-100.0 fL Mean Corpuscular Hemoglobin 31.9 28.0-32.0 pg Mean Corpuscular Hemoglobin Concent 32.0 32.0-36.0 g/dL Red Cell Distribution Width 15.6 H 11.8-14.3 % Platelet Count 289 140-450 10^3/uL Mean Platelet Volume 7.8 6.9-10.8 fL Neutrophils (%) (Auto) 40.4 37.0-80.0 % Lymphocytes (%) (Auto) 45.4 10.0-50.0 % Monocytes (%) (Auto) 8.6 0.0-12.0 % Eosinophils (%) (Auto) 4.4 0.0-7.0 % Basophils (%) (Auto) 1.2 0.0-2.0 % Neutrophils # (Auto) 2.8 1.6-8.6 10 ^3/uL Lymphocytes # (Auto) 3.2 0.4-5.4 10 ^3/uL Monocytes # (Auto) 0.6 0-1.3 10 ^3/uL Eosinophils # (Auto) 0.3 0-0.8 10 ^3/uL Basophils # (Auto) 0.1 0-0.2 10 ^3/uL Nucleated Red Blood Cells 0.1 % Sodium Level 140 136-145 mmol/L Potassium Level 4.6 3.5-5.1 mmol/L Chloride Level 112 H 98-107 mmol/L Carbon Dioxide Level 25 20-31 mmol/L Anion Gap 3 L 5-15 Blood Urea Nitrogen 6 L 9-23 mg/dL Creatinine 1.02 0.550-1.02 mg/dL Glomerular Filtration Rate Calc 62 >90 mL/min BUN/Creatinine Ratio 5.9 L 10.0-20.0 Serum Glucose 88 74-106 mg/dL Calcium Level 9.4 8.7-10.4 mg/dL Total Bilirubin 0.5 0.2-1.0 mg/dL Aspartate Amino Transferase (AST) 15 13-40 U/L Alanine Aminotransferase (ALT) 11 7-40 U/L Alkaline Phosphatase 56 46-116 U/L C-Reactive Protein High Sensitivity 0.53 <1.0 mg/dL Total Protein 6.5 5.7-8.2 g/dL Albumin 3.9 3.2-4.8 g/dL Hepatitis B Surface Antigen Negative Negative Hepatitis C Antibody Negative Negative Test 08/11/24 08:44 Range/Units Triglycerides Level 99 < 150 mg/dL Cholesterol Level 236 H < 200 mg/dL LDL Cholesterol 169 H < 100 mg/dL HDL Cholesterol 52 40-59 mg/dL Plan/Recommendation 64 yo F with Left middle finger necrosis 1. I had a long and thorough discussion with the patient regarding her condition. Nonoperative and operative management discussed in depth. Risks benefits and alternatives were reviewed. Risks include but not exclusive to bleeding infection nerve injury chronic pain need for further surgery blood clots cardiac and pulmonary complications need for further amputation . Patient understands the we planned for a left middle finger partial amputation she agrees with the above plan 2. Pain control 3. Medical clearance Plan discussed with: Patient LUIS WALDRON MD Aug 13, 2024 14:40
--- NOTE | 2024-08-13 15:00 | DVHPN2 ---
Progress Note Date Seen: Aug 13, 2024 Medical Necessity Reason Pt with a Central, PICC or Fol: No Subjective Patient reports: No new complaints Review of Systems: HEENT:Normal, CVS:Normal, RESPIRATORY:Normal, GI:Normal, :Normal, MSK:Normal, NEURO:Normal Objective vital signs Vital Sign Date Time Temp Pulse Resp B/P (MAP) Pulse Ox O2 Delivery O2 Flow Rate FiO2 08/13/24 13:00 97.8 89 16 144/75 (98) 100 97.8 08/13/24 08:00 Room Air* 0 21 Total Intake and Output 08/12/24 08/12/24 08/13/24 15:00 23:00 07:00 Intake Total 50 ml 750 ml 450 ml Balance 50 ml 750 ml 450 ml medications Current Medications Medications Dose Ordered Sig/Jaspreet Route Start Time Stop Time Status Last Admin Dose Admin Acetaminophen/ Hydrocodone Bitart 1 tab Q4HP PRN PO 08/11/24 13:45 08/12/24 13:30 1 TAB Ondansetron HCl 4 mg Q4HP PRN IV 08/11/24 13:45 08/11/24 18:43 4 MG Acetaminophen 650 mg Q6HP PRN PO 08/11/24 13:45 Morphine Sulfate 2 mg Q4HPRN PRN IV 08/11/24 13:45 08/13/24 11:52 2 MG Nicotine 1 patch DAILY TD 08/13/24 10:00 08/13/24 09:37 1 PATCH Cefazolin Sodium 50 ml @ 100 mls/hr Q8HR IV 08/12/24 14:00 08/13/24 06:15 100 MLS/HR Melatonin 5 mg HSPRN PRN PO 08/12/24 22:30 08/12/24 22:25 5 MG Examination: GENERAL:Normal, HEENT:Normal, NECK:Normal, LUNGS:Normal, CVS:Normal, ABDOMEN:Normal, MSK:Normal, MSK:Abnormal (LEFT FINGER NECROSIS), SKIN:Normal, NEURO:Normal, :Normal laboratory and microbiology Laboratory Tests 08/12/24 07:28 Test 08/12/24 07:28 Range/Units Serum Glucose 88 74-106 mg/dL Problem List/Assessment/Plan Problem List/Assessment/Plan #1 left middle finger tip necrosis: dw dr Jimenes, will see pt, iv ancef, surg today #2 tobacco abuse- advised to quit, nicotine patch- time spent 11 mins #3 hyperlipidemia advance care planning- full code- time spent 11 mins Plan discussed with: Other (rn) My Orders My Orders Orders - JOSE MANUEL CLARK MD Procedure Category Date Status Time Dietary NOTICE 08/13/24 Transmitted Recommendations 14:21 Dietary Evaluation Review Comments: Recommend Corey BID for wound healing, follow her current diet, monitor intake to meet 75% minimum of her energy needs. Expected Outcomes/Goals: maintain weight, controlled HLD. Date of Service: Aug 13, 2024 Billing Provider: JOSE MANUEL CLARK MD Common Visit Codes: [id number] INP/OBS CARE(HIGH) JOSE MANUEL CLARK MD Aug 13, 2024 15:00
[2024-08-13] MEDS: ceFAZolin 2 GM/D5W100ml 100 ML IV ONE (15:09)
[2024-08-13] MEDS: LIDOCAINE 1% HCL (LOCAL ANESTH.) INJ 20ML MDV ONE (15:22)
[2024-08-13] MEDS ORDERED: MEPERIDINE HCL (25 MG/ML) 1ML VIAL IV PRN (15:30)
[2024-08-13] MEDS ORDERED: HYDROmorphone HCL 2 MG/ML VL/or syr IV PRN (15:30)
[2024-08-13] MEDS: ONDANSETRON HCL 4 MG/2 ML VIAL IV ONE (15:30)
[2024-08-13] MEDS ORDERED: ACETAMINOPHEN IV 1000 MG/100ML (10MG/ML) IV PRN (15:30)
[2024-08-13] MEDS ORDERED: fentaNYL CITRATE 100 MCG/2 ML VL ONE (15:30)
[2024-08-13] MEDS ORDERED: DexAMETHasone SOD PHOS 10MG/1ML VIAL INJ ONE (15:58)
[2024-08-13] MEDS ORDERED: ONDANSETRON HCL 4 MG/2 ML VIAL ONE (15:58)
[2024-08-13] MEDS: BUPIVACAINE HCL 0.25% P/F 10 ML VIAL ONE (16:32)
[2024-08-13] MEDS ORDERED: MELATONIN 5 MG TAB PO SCH (22:00)
[2024-08-14 01:00] VITALS: BP 134/70; PULSE 68; RESP 19; TEMP 97.6; O2SAT 100
[2024-08-14 05:00] VITALS: BP 114/61; PULSE 65; RESP 19; TEMP 97.7; O2SAT 100
[2024-08-14 06:15] LABS: Basophils # (auto) 0 10 ^3/uL (0-0.2); Basophils % (auto) 0.3 % (0.0-2.0); Eosinophils # (auto) 0 10 ^3/uL (0-0.8); Hematocrit 41.3 % (36.0-46.0); Hemoglobin 13.7 g/dL (12.2-16.2); Lymphocytes # (auto) 1.2 10 ^3/uL (0.4-5.4); Lymphocytes % (auto) 20.6 % (10.0-50.0); Mean Corpuscular Hemoglobin 32.3 pg (28.0-32.0); Mean Corpuscular Hgb Conc. 33.2 g/dL (32.0-36.0); Mean Corpuscular Volume 97.5 fL (80.0-100.0); Monocytes # (auto) 0.3 10 ^3/uL (0-1.3); Monocytes % (auto) 4.5 % (0.0-12.0); Neutrophils # (auto) 4.3 10 ^3/uL (1.6-8.6); Neutrophils % (auto) 74.6 % (37.0-80.0); Platelet Count (auto) 403 10^3/uL (140-450); Red Blood Cells 4.24 10^6/uL (4.0-5.20); Red Cell Distribution Width 14.8 % (11.8-14.3); White Blood Cell 5.8 10^3/uL (4.4-10.8)
[2024-08-14 06:24] LABS: Anion Gap 3 (5-15); Carbon Dioxide 26 mmol/L (20-31); Chloride 109 mmol/L (98-107); Potassium 4.7 mmol/L (3.5-5.1); Sodium 138 mmol/L (136-145)
[2024-08-14 06:26] LABS: Calcium 10.3 mg/dL (8.7-10.4)
[2024-08-14 06:30] LABS: BUN/Creatinine Ratio 8.2 (10.0-20.0); Blood Urea Nitrogen 7 mg/dL (9-23); Glucose 100 mg/dL (74-106)
[2024-08-14 08:00] VITALS: PULSE 72; RESP 16; O2SAT 98
[2024-08-14 08:42] VITALS: BP 110/51; PULSE 72; RESP 14; TEMP 98.6; O2SAT 98
[2024-08-14 13:00] VITALS: BP 123/46; PULSE 59; RESP 17; TEMP 98.2; O2SAT 99
--- NOTE | 2024-08-14 13:22 | DVHDS2 ---
Discharge Summary Date of Admission Aug 11, 2024 at 13:35 Date of Discharge: Aug 14, 2024 Labs/Diagnostic Data: Laboratory Results Test 08/14/24 05:20 08/13/24 06:08 08/13/24 05:50 08/12/24 13:30 White Blood Count 5.8 10^3/uL (4.4-10.8) Red Blood Count 4.24 10^6/uL (4.0-5.20) Hemoglobin 13.7 g/dL (12.2-16.2) Hematocrit 41.3 % (36.0-46.0) Mean Corpuscular Volume 97.5 fL (80.0-100.0) Mean Corpuscular Hemoglobin 32.3 pg (28.0-32.0) Mean Corpuscular Hemoglobin Concent 33.2 g/dL (32.0-36.0) Red Cell Distribution Width 14.8 % (11.8-14.3) Platelet Count 403 10^3/uL (140-450) Mean Platelet Volume 7.8 fL (6.9-10.8) Neutrophils (%) (Auto) 74.6 % (37.0-80.0) Lymphocytes (%) (Auto) 20.6 % (10.0-50.0) Monocytes (%) (Auto) 4.5 % (0.0-12.0) Eosinophils (%) (Auto) 0.0 % (0.0-7.0) Basophils (%) (Auto) 0.3 % (0.0-2.0) Neutrophils # (Auto) 4.3 10 ^3/uL (1.6-8.6) Lymphocytes # (Auto) 1.2 10 ^3/uL (0.4-5.4) Monocytes # (Auto) 0.3 10 ^3/uL (0-1.3) Eosinophils # (Auto) 0 10 ^3/uL (0-0.8) Basophils # (Auto) 0 10 ^3/uL (0-0.2) Nucleated Red Blood Cells 0.0 % Sodium Level 138 mmol/L (136-145) Potassium Level 4.7 mmol/L (3.5-5.1) Chloride Level 109 mmol/L (98-107) Carbon Dioxide Level 26 mmol/L (20-31) Anion Gap 3 (5-15) Blood Urea Nitrogen 7 mg/dL (9-23) Creatinine 0.85 mg/dL (0.550-1.02) Glomerular Filtration Rate Calc 77 mL/min (>90) BUN/Creatinine Ratio 8.2 (10.0-20.0) Serum Glucose 100 mg/dL (74-106) Calcium Level 10.3 mg/dL (8.7-10.4) Prothrombin Time 10.6 sec (9.3-11.8) Prothrombin Time INR 1.00 (0.9-1.15) Activated Partial Thromboplast Time 30.5 SEC (24.5-34.5) Urine Color Light-yellow (Yellow) Urine Clarity Clear (Clear) Urine pH 6.5 (5.0-9.0) Urine Specific [place] 1.007 (1.001-1.035) Urine Protein Negative (Negative) Urine Ketones Negative (Negative) Urine Blood Negative /uL (Negative) Urine Nitrite Negative (Negative) Urine Bilirubin Negative (Negative) Urine Urobilinogen Normal mg/dL (Negative) Urine Leukocyte Esterase Negative /uL (Negative) Urine RBC None seen /hpf (0 - 4) Urine WBC None seen /hpf (0 - 5) Urine Squamous Epithelial Cells None seen /hpf (<5) Urine Bacteria None seen /hpf (None Seen) Urine Glucose Normal mg/dL (Normal) Erythrocyte Sedimentation Rate 23 mm/hr (0-20) Test 08/12/24 07:28 08/11/24 08:44 Total Bilirubin 0.5 mg/dL (0.2-1.0) Aspartate Amino Transferase (AST) 15 U/L (13-40) Alanine Aminotransferase (ALT) 11 U/L (7-40) Alkaline Phosphatase 56 U/L (46-116) C-Reactive Protein High Sensitivity 0.53 mg/dL (<1.0) Total Protein 6.5 g/dL (5.7-8.2) Albumin 3.9 g/dL (3.2-4.8) Hepatitis B Surface Antigen Negative (Negative) Hepatitis C Antibody Negative (Negative) Triglycerides Level 99 mg/dL (< 150) Cholesterol Level 236 mg/dL (< 200) LDL Cholesterol 169 mg/dL (< 100) HDL Cholesterol 52 mg/dL (40-59) Other Laboratory Tests 08/14/24 05:20 Brief Hx & Hospital Course: see dictated note Condition at Discharge: Fair Final Diagnosis/Problems List left finger amputation Discharge Disposition: Home with Health Services Discharge Instruct/Medications Diet: Cardiac 2g Na,low cholest Activity: No Restrictions, As Tolerated Follow Up/Referral: schedule appt with dr Rico Jimenes in 1 wk Medications: resume home meds script to pharmacy Discharge Statement: "Patient was advised to return to the ER or call 911 if any headaches, dizziness, shortness of breath, chest pain, abdominal pain, bleeding, fevers, or worsening of medical condition. Patient was counseled about treatment plan, medications, possible side effects, patientverbalized understanding. All questions were answered to the best of my ability. This discharge took greater then 30 minutes in planning, reviewing documentation, counseling the patient, and discussing with other team members." ASSESSMENT ASSESSMENT Assessment left finger amputation Date of Service: Aug 14, 2024 Billing Provider: JOSE MANUEL CLARK MD Common Visit Codes: [id number] DISCH DAY >30min JOSE MANUEL CLARK MD Aug 14, 2024 13:22
[2024-08-14] MEDS ORDERED: CEPH500C PO (13:24)
[2024-08-14] MEDS ORDERED: HYDR1TAB97 PO (13:24)
[2024-08-14 14:55] VITALS: BP 123/46; PULSE 60; RESP 18; TEMP 98.2; O2SAT 99
--- NOTE | 2024-08-14 18:01 | DVHDS ---
DATE OF DISCHARGE: 08/14/2024 The patient is a 64-year-old lady who was admitted with history of left middle ____ gangrene after she crushed it in a door in June. The patient has history of hyperlipidemia and tobacco abuse. HOSPITAL COURSE: The patient was seen in orthopedic consult by Dr. Jimenes. The patient had an hand MRI that showed erosive changes in the distal second digit. The patient underwent partial amputation of the left finger on 08/14/2024. As per Dr. Jimenes, the patient can now be discharged home to have home health for dressing changes as well as Keflex 500 mg t.i.d. for seven days and [place] p.r.n. for pain. She will follow up with him in one week. FINAL DIAGNOSES: * Left distal finger necrosis, status post partial amputation. * Tobacco abuse. * Hyperlipidemia. Time spent in discharge planning and review of plan with the patient and nursing and systems management consultant was 38 minutes. MD EMMA Farris/ARABELLA/SHABANA TID: [id number] RECEIPT: [id number]
--- NOTE | 2024-08-15 06:08 | DVHOP2 ---
Operative Report - 2 Report Details Date: 08/13/24 Preop Diagnosis: Left middle finger necrosis Postop Diagnosis: Left middle finger necrosis Surgeon: Young Jimenes MD Anesthesiologist: Steff MALCOLM Anesthesia: General Consent: The patient was informed of the risks and benefits of the procedure. These include but are not limited to complications of anesthesia, postoperative infection, incomplete relief of symptoms, recurrence of symptoms, damage to bl ood vessels, nerves and tendons, deep venous thrombosis, pulmonary embolism and possible need for repeat surgery in the future. 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 Risks include but not exclusive to: bleeding, infection, nerve injury, chronic pain, stiffness, motor or sensory paralysis, loss of limb, deep venous thrombosis, and . Patient was seen in the preoperative area. Consent was signed and then she was taken to the operating room. With the patient under adequate anesthesia, the upper extremity was prepped and draped in a sterile manner. The tourniquet was elevated at 250 mm/Hg. Construction lines were made on the left middle finger demarcating the gangrene to the DIP joint. Using a fisheye incision we were able to amputate to the DIP joint. I then used a saw to cut of the middle phalanx head. I performed digital neurectomy on both sides. I mobilized FDP and did tenodesis to bone. I mobilized soft tissue for flap closure without tension. Wound irrigated. Hemostasis was obtained with bipolar cautery. The wound was then closed with 3-0 nylon. sterile dressing was applied. The tourniquet was deflated. The patient was awakened from anesthesia and returned to the Recovery Room in satisfactory condition, having tolerated the procedure well. Condition Fair Disposition Still a Patient YOUNG JIMENES MD Aug 15, 2024 06:08
== END 2024-08-14 15:53 | disposition home health service (06) | DRG 906 ==
LOC: ER 08:16 → OVERFLOW 13:35 → WEST WING 20:30
PROVIDERS: ADMIT Registered Nurse; ATTEND Internal Medicine
PROC: 0LS40ZZ Reposition Left Upper Arm Tendon, Open Approach (ICD-10-PCS; 2024-08-13)
PROC: 01B50ZZ Excision of Median Nerve, Open Approach (ICD-10-PCS; 2024-08-13)
PROC: 0X6R0Z3 Detachment at Left Middle Finger, Low, Open Approach (ICD-10-PCS; principal; 2024-08-13 14:38)
DX: S68.123A Partial traumatic metacarpophalangeal amputation of left middle finger, initial encounter (principal); I96 Gangrene, not elsewhere classified; E78.5 Hyperlipidemia, unspecified; X58.XXXA Exposure to other specified factors, initial encounter; F12.90 Cannabis use, unspecified, uncomplicated; F17.200 Nicotine dependence, unspecified, uncomplicated; Z79.899 Other long term (current) drug therapy; Z79.891 Long term (current) use of opiate analgesic; Z79.1 Long term (current) use of non-steroidal anti-inflammatories (NSAID); Y93.89 Activity, other specified; Y92.89 Other specified places as the place of occurrence of the external cause; Y99.8 Other external cause status; Z82.49 Family history of ischemic heart disease and other diseases of the circulatory system
CPT/HCPCS: 36415; 71045; 73140; 73218; 80048; 80053; 80061; 81001; 85025; 85610; 85652; 85730; 86141; 86803; 86850; 86900; 86901; 87340; 93005; 96374; 96375; 96376; G0378; J0131; J1100; J2003; J2405; J3490